=== PATIENT | female | born 1945 | race Caucasian/White ===

== ENCOUNTER 2020-08-21 12:16 | Emergency (ER) | payer OTHER ==
[~2020-08-21] VITALS: Ht 162.6 cm; Wt 64.9 kg
[~2020-08-21 12:16] MED LIST: AMLODIPINE BESYL5 MG; ASA81 MG; COZAAR50 MG; DOLOGEN CAPLET1 TAB PO; FIORICET 50-321 EACH PO; METFORMIN HCL500 MG; NEURONTIN300 MG PO; PEPCID40 MG PO; ZOFRAN4 MG PO
[2020-08-21] MEDS ORDERED: JANUMET XR 1001 EACH PO (12:46)
[2020-08-21] MEDS ORDERED: SIMVASTATIN5 MG PO (12:47)
[2020-08-21] MEDS ORDERED: GLIPIZIDE XL5 MG PO (12:47)
== END 2020-08-21 15:16 | disposition home or self-care (01) ==
LOC: ER 12:16
DX: S60.211A Contusion of right wrist, initial encounter (principal); I89.1 Lymphangitis; W01.198A Fall on same level from slipping, tripping and stumbling with subsequent striking against other object, initial encounter; Y93.89 Activity, other specified; Y92.89 Other specified places as the place of occurrence of the external cause; Y99.8 Other external cause status

== ENCOUNTER 2021-12-27 12:28 | Emergency (ER) | payer OTHER ==
[~2021-12-27] VITALS: Ht 154.9 cm; Wt 61.2 kg
[~2021-12-27 12:28] MED LIST changes: +GLIPIZIDE XL5 MG PO; +JANUMET XR 1001 EACH PO; +SIMVASTATIN5 MG PO
== END 2021-12-27 16:09 | disposition home or self-care (01) ==
LOC: ER 12:28
DX: U07.1 COVID-19 (principal); E11.9 Type 2 diabetes mellitus without complications; Z79.84 Long term (current) use of oral hypoglycemic drugs